=== PATIENT | female | born 1950 | race Caucasian/White ===

== ENCOUNTER 2018-10-29 09:38 | Outpatient (CLI) | payer MEDICARE, OTHER | END 2018-10-29 23:59 | disposition home or self-care (01) | LOC: CFH 09:38 | PROVIDERS: ATTEND Family Medicine | DX: M48.02 Spinal stenosis, cervical region (principal); M50.30 Other cervical disc degeneration, unspecified cervical region; G44.89 Other headache syndrome | CPT/HCPCS: 70551; 72040; 72141 ==

== ENCOUNTER → 2019-04-23 | Outpatient (CLI) | payer MEDICARE | END | disposition home or self-care (01) | LOC: CFH 12:36 | PROVIDERS: ATTEND Registered Nurse | DX: I25.9 Chronic ischemic heart disease, unspecified (principal); M41.86 Other forms of scoliosis, lumbar region; I10 Essential (primary) hypertension | CPT/HCPCS: 78452; 93017; A9502 ==